=== PATIENT | female | born 1945 | race Caucasian/White ===

== ENCOUNTER 2016-10-18 16:41 | Emergency (ER) | payer OTHER ==
[~2016-10-18] VITALS: Ht 168.9 cm; Wt 76.2 kg
[~2016-10-18 16:41] MED LIST: NORCO 325 MG-51 TAB PO
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
[2016-10-18] MEDS ORDERED: ATORVASTATIN CA40 M1 PO (19:40)
[2016-10-18] MEDS ORDERED: OMEPRAZOLE20 M2 PO (19:40)
[2016-10-18] MEDS ORDERED: ATENOLOL50 M1 PO (19:40)
[2016-10-18] MEDS ORDERED: ALEVE220 M2 PO (19:41)
[2016-10-18 19:44] VITALS: BP 147/82
== END 2016-10-18 19:45 ==
LOC: ERH 16:41
DX: K13.79 Other lesions of oral mucosa (principal)